=== PATIENT | male | born 1950 | race Caucasian/White ===

== ENCOUNTER 2018-05-26 12:41 | Outpatient (REF) | payer MEDICARE, MEDICAID, SELFPAY ==
[2018-05-26 19:28] LABS: HCT 42.7 % (40.0-50.0); HGB 14.7 g/dL (13.5-17.5); Mean Corp. HGB Concentration 34.4 g/dL (32.0-36.0); Mean Corpuscular Hemoglobin 31.1 pg (27.0-33.0); Mean Corpuscular Volume 90.3 fL (80-95); Mean Platelet Volume 10.2 fL (8.0-11.0); Platelet Count 292 x1000/uL (130-400); RBC 4.73 m/cumm (4.50-6.00); RBC Distribution Width 13.3 % (11.8-14.1); White Blood Cell Count 8.39 k/cumm (4.4-10.8)
[2018-05-26 19:44] LABS: ALT 27 U/L (12-78); AST 14 U/L (15-37); Albumin 4.2 g/dL (3.4-5.0); Alkaline Phosphatase 109 U/L (46-116); Amylase 52 U/L (25-115); Anion Gap 10.8 mmol/L (3-11); BUN 28 mg/dL (7-18); Bilirubin, Total 0.7 mg/dL (0.2-1.0); CO2 26.2 mmol/L (21.0-32.0); CREATININE 0.99 mg/dL (0.70-1.30); Chloride 101 mmol/L (98-107); Glucose 145 mg/dL (70-100); Lipase 196 U/L (73-393); Potassium 3.7 mmol/L (3.5-5.1); Sodium 138 mmol/L (136-145); Total Protein 7.1 g/dL (6.4-8.2)
[2018-05-26 20:27] LABS: Calcium 9.3 mg/dL (8.5-10.1)
[2018-05-28 09:34] LABS: PSA, Screening 3.4 ng/ml (0-4.5)
== END 2018-05-26 13:01 ==
LOC: NCHCN 12:41
PROVIDERS: PCP Internal Medicine; Visit Provider Nurse Practitioner Family
DX: R10.84 Generalized abdominal pain (principal); Z12.5 Encounter for screening for malignant neoplasm of prostate
CPT/HCPCS: 80053; 83690; 84153; 85027; 82150

== ENCOUNTER 2018-06-13 15:22 | Outpatient (REF) | payer MEDICARE, MEDICAID, SELFPAY ==
[2018-06-13 19:48] LABS: FREE T4 1.61 ng/dL (0.76-1.46); TSH 2.21 uIU/mL (0.358-3.74)
== END 2018-06-13 15:42 ==
LOC: NCHCN 15:22
PROVIDERS: PCP Internal Medicine; Visit Provider Internal Medicine
DX: R63.4 Abnormal weight loss (principal); R00.0 Tachycardia, unspecified; F29 Unspecified psychosis not due to a substance or known physiological condition
CPT/HCPCS: 84439; 84443

== ENCOUNTER 2018-06-23 11:15 | Outpatient (REF) | payer MEDICARE, MEDICAID, SELFPAY ==
[2018-06-23 19:17] LABS: Anion Gap 10.8 mmol/L (3-11); BUN 26 mg/dL (7-18); CO2 27.2 mmol/L (21.0-32.0); CREATININE 1.17 mg/dL (0.70-1.30); Calcium 9.4 mg/dL (8.5-10.1); Chloride 99 mmol/L (98-107); Glucose 145 mg/dL (70-100); Potassium 4.2 mmol/L (3.5-5.1); Sodium 137 mmol/L (136-145)
== END 2018-06-23 11:35 ==
LOC: NCHCN 11:15
PROVIDERS: PCP Internal Medicine; Visit Provider Internal Medicine
DX: E87.1 Hypo-osmolality and hyponatremia (principal)
CPT/HCPCS: 80048

== ENCOUNTER 2018-07-04 14:29 | Outpatient (REF) | payer MEDICARE, MEDICAID, SELFPAY ==
[2018-07-04 20:23] LABS: Anion Gap 12.1 mmol/L (3-11); BUN 26 mg/dL (7-18); CO2 23.9 mmol/L (21.0-32.0); CREATININE 1.28 mg/dL (0.70-1.30); Calcium 9.6 mg/dL (8.5-10.1); Chloride 103 mmol/L (98-107); Estimated GFR 56.06 (mL/min/1.73m2); Glucose 186 mg/dL (70-100); Magnesium 2.1 mg/dL (1.8-2.4); Potassium 4.3 mmol/L (3.5-5.1); Sodium 139 mmol/L (136-145)
== END 2018-07-04 14:49 ==
LOC: NCHCN 14:29
PROVIDERS: PCP Internal Medicine; Visit Provider Internal Medicine
DX: E87.1 Hypo-osmolality and hyponatremia (principal); R63.4 Abnormal weight loss; F29 Unspecified psychosis not due to a substance or known physiological condition
CPT/HCPCS: 80048; 83655; 83735